=== PATIENT | female | born 1955 | race Caucasian/White ===

== ENCOUNTER 2020-04-08 07:13 | Inpatient (IN) ==
--- NOTE | 2020-03-21 16:17 | PAT Medication Instructions ---
Medication Instructions Date of Service March 21, 2020 Home Medications alendronate 70 mg PO WK amlodipine 5 mg PO QAM atorvastatin 10 mg PO QPM biotin 5,000 mcg PO DAILY cholecalciferol (vitamin D3) [Vitamin D3] 125 mcg PO QAM cyclobenzaprine 5 mg PO UD PRN hydrocodone-acetaminophen 1 tab PO UD PRN polyethylene glycol 3350 [Miralax] 17 g PO UD PRN turmeric 1,000 mg PO DAILY Continue as directed alendronate 70 mg PO WK STOP taking 2 weeks before surgery (or as soon as possible if surgery is within 2 weeks) turmeric 1,000 mg PO DAILY DO NOT take the morning of surgery biotin 5,000 mcg PO DAILY cholecalciferol (vitamin D3) [Vitamin D3] 125 mcg PO QAM cyclobenzaprine 5 mg PO UD PRN polyethylene glycol 3350 [Miralax] 17 g PO UD PRN Take morning of surgery With a small sip of water, OTHERWISE NOTHING TO EAT OR DRINK AFTER MIDNIGHT: amlodipine 5 mg PO QAM hydrocodone-acetaminophen 1 tab PO UD PRN (okay to take up to 4 hours prior to surgery if needed) Take evening before surgery atorvastatin 10 mg PO QPM cyclobenzaprine 5 mg PO UD PRN (if needed) hydrocodone-acetaminophen 1 tab PO UD PRN (if needed) polyethylene glycol 3350 [Miralax] 17 g PO UD PRN (if needed) Other Notes If you have any questions please call us at [phone] or [phone] or [phone] or [phone]
--- NOTE | 2020-03-25 10:38 | Anesthesiology Consultation ---
Date of Service March 25, 2020 Assessment & Plan (1) Encounter for pre-operative examination: Per PAT assessment on 03/25: Travel screen negative. No known COVID-19 positive contacts. No current COVID-19 related symptoms. Patient scheduled for preop protocol COVID-19 testing scheduled 04/04 ([facility]). Awaiting results. Chart Review Chart Review: Acceptable Risk for Surgery (pending preop COVID testing) and Patient seen in Pre Admission Testing Teaching & Discussion Pre-Anesthesia Teaching/Discussion Notes: Instructed NPO after midnight before surgery,except medications with 15 cc of water. Medication instructions provided according to the PAT guidelines. History Surgery Operation Date: 04/08/20 09:05 Proposed Procedures p L5-S1 Decompression Fusion, L3-L5 Hardware Removal, Spinal Cord Monitoring - Carlin Dumont DO Height/Weight Height: 5 ft 2 in Weight: 59.6 kg Allergies Allergy/AdvReac Type Severity Reaction Status Date / Time No Known Allergies Allergy Unverified 03/20/20 11:34 Medications Home Medications Medication Instructions Recorded Confirmed Last Taken alendronate 70 mg PO WK 03/20/20 03/20/20 Unknown amlodipine 5 mg PO QAM 03/20/20 03/20/20 Unknown atorvastatin 10 mg PO QPM 03/20/20 03/20/20 Unknown biotin 5,000 mcg PO DAILY 03/20/20 03/20/20 Unknown cholecalciferol (vitamin D3) 125 mcg PO QAM 03/20/20 03/20/20 Unknown [Vitamin D3] cyclobenzaprine 5 mg PO UD PRN 03/20/20 03/20/20 Unknown hydrocodone-acetaminophen 1 tab PO UD PRN 03/20/20 03/20/20 Unknown polyethylene glycol 3350 [Miralax] 17 g PO UD PRN 03/20/20 03/20/20 Unknown turmeric 1,000 mg PO DAILY 03/20/20 03/20/20 Unknown Past Medical History Medical History High blood pressure High cholesterol Spinal stenosis Exercise / Class Metabolic Activity II 4-5 Yardwork/Stairs/Walk up hill (no chest pain/no sob with one flight of stairs) Past Family History Family History Brother Family history of reaction to anesthesia Family history of diabetes mellitus Brother Family history of diabetes mellitus Past Surgical History Surgical History History of carpal tunnel surgery LEFT History of colonoscopy History of hysterectomy History of lumbar spinal fusion History of shoulder surgery RIGHT Past Anesthesia History No Family Hx of Anesthesia Complications (except brother- violent with anesthesia emergence) and Other (*hx of post-op hypotension with back surgery in the past, no issues with other surgeries/anesthesia*) History of PONV No Hx of PONV and No Hx of Motion Sickness Social History Smoking Status: Current every day smoker tobacco type: cigarettes Smoking cigarettes per day: 1PPD; tobacco use x 40 years Do You Dip or Chew Tobacco: No Hx Alcohol Use: No Hx Substance Use: No Review of Systems Patient denies chest pain, shortness of breath, dyspnea on exertion, fever, chills, cough, wheezing, palpitations. Physical Exam Vital Signs VITALS BP 132/83 P 68 TEMP 98.0 SP02 99%RA RESP 18 PHYSICAL Full neck and c-spine range of motion. Full TMJ range of motion. TMD 3 finger breaths Mallampati Score 2 Dentition: missing side/molars Lungs: clear throughout to auscultation Cardiac: regular rate and rhythm, no murmurs noted Spine: normal Carotid arteries: negative bruit Extremities: no edema Testing Laboratory Results 03/25/20 11:05 03/25/20 11:05 PT 10.0 Seconds (9.0-12.0) 03/25/20 11:05 INR 0.9 (0.9-1.1) 03/25/20 11:05 APTT 25.0 Seconds (21.0-31.0) 03/25/20 11:05 Urine Color Yellow 03/25/20 11:05 Urine Appearance Clear (Clear) 03/25/20 11:05 Urine pH 7.5 (4.5-7.5) 03/25/20 11:05 Ur Specific [place] 1.015 (1.000-1.030) 03/25/20 11:05 Urine Protein Negative (Negative) 03/25/20 11:05 Urine Glucose (UA) Negative (Negative) 03/25/20 11:05 Urine Ketones Negative (Negative) 03/25/20 11:05 Urine Nitrite Negative (Negative) 03/25/20 11:05 Ur Leukocyte Esterase Negative (Negative) 03/25/20 11:05 Blood Type A Positive 03/25/20 11:05 Antibody Screen NEGATIVE 03/25/20 11:05 Electrocardiogram Date: 03/25/20 NSR at 63bpm. Rightward axis. UDAY. Chest X-Ray Date: 03/25/20 Findings: + NAD
--- NOTE | 2020-03-25 11:35 | XRay Report ---
XR chest Pre-admission PA/Lat CLINICAL HISTORY: Preoperative chest COMPARISON STUDY: 01/16/2014 FINDINGS: The cardiac and mediastinal contours are normal. There is no evidence of focal pulmonary co nsolidation. There is no evidence of failure. No pleural effusions are visualized.[ IMPRESSION: No active disease in the chest. ACT 112: Negative or not required by law. Electronically signed by: Castillo Olivarez M.D. 03/25/2020 11:34 AM
[2020-03-25 12:11] LABS: Appearance Urine Clear (Clear); Basophils # (auto) 0.04 K/uL (0-0.2); Basophils % (auto) 0.6 %; Bilirubin Urine Negative (Negative); Blood Urine Negative (Negative); Color Urine Yellow; Eosinophils # (auto) 0.05 K/uL (0-0.5); Eosinophils % (auto) 0.7 %; Glucose Urine UA Negative (Negative); Hematocrit (blood only) 47.4 % (37-47); Hemoglobin 16.1 g/dL (12.0-16.0); Immature Granulocytes # (auto) 0.01 K/uL (0.00-0.02); Immature Granulocytes % (auto) 0.1 %; Ketones Urine Negative (Negative); Leukocyte Esterase Urine Negative (Negative); Lymphocytes % (auto) 32.2 %; Mean Corpuscular Hemoglobin 32.5 pg (25-34); Mean Corpuscular Volume 95.6 fL (80-100); Mean Platelet Volume 9.5 fL (7.4-10.4); Monocytes # (auto) 0.59 K/uL (0.11-0.59); Monocytes % (auto) 8.6 %; Neutrophils # (auto) 3.94 K/uL (1.4-6.5); Neutrophils % (auto) 57.8 %; Nitrite Urine Negative (Negative); Platelet Count 279 K/uL (130-400); Protein Urine Negative (Negative); RDW Coefficient of Variation 13.6 % (11.5-14.5); RDW Standard Deviation 47.6 fL (36.4-46.3); Red Blood Count 4.96 M/uL (4.2-5.4); Specific Gravity Urine 1.015 (1.000-1.030); Urobilinogen Urine Negative (Negative); White Blood Count 6.83 K/uL (4.8-10.8); pH Urine 7.5 (4.5-7.5)
[2020-03-25 12:17] LABS: BUN Creatinine Ratio 17.7 (10-20); Calcium 9.8 mg/dl (8.5-10.1); Creatinine Clr Calc Pharmacy 46.1 ml/min; Est GFR (African American) 72.3; Est GFR (Non-African American) 62.4; Potassium 4.5 mmol/L (3.5-5.1)
[2020-03-25 12:33] LABS: INR 0.9 (0.9-1.1); Partial Thromboplastin Ratio 0.9
--- NOTE | 2020-03-25 14:26 | Electrocardiogram Report ---
Test Reason : Blood Pressure : / mmHG Vent. Rate : 063 BPM Atrial Rate : 063 BPM P-R Int : 162 ms QRS Dur : 096 ms QT Int : 406 ms P-R-T Axes : 077 102 060 degrees QTc Int : 415 ms Normal sinus rhythm Rightward axis Right atrial enlargement Abnormal ECG Confirmed by Arnold Clifford ([id number]) on 03/25/2020 2:25:59 PM Referred By: Carlin Dumont Confirmed By:Keshawn Clifford
[~2020-04-08 07:13] MED LIST: ACETAMINOPHEN 500 MG TAB PO SCH; CEFAZOLIN 1000MG 1,000 MG/7.5 ML SYR IV SCH; CeleBREX 200 MG CAP PO SCH; GABAPENTIN 300 MG CAP PO SCH; LR 15ML/HR IV SCH
[2020-04-08] MEDS ORDERED: ROCURONIUM BROMIDE 10 MG/ML 5 ML VIAL IV ONE (08:22)
[2020-04-08] MEDS ORDERED: DEXAMETHASONE SOD INJ 4 MG/ML VIAL ONE (08:22)
[2020-04-08] MEDS ORDERED: LIDOCAINE HCL 2% 2 ML VIAL/AMP(20MG/ML) INFIL ONE (08:22)
[2020-04-08] MEDS ORDERED: ONDANSETRON INJ 2 MG/ML 2 ML VIAL ONE (08:22)
[2020-04-08] MEDS ORDERED: PROPOFOL IV EMULSION 10 MG/ML 20 ML VIAL IV ONE (08:22)
[2020-04-08] MEDS ORDERED: NEOSTIGMINE METHYLSULFATE 1 MG/ML 10ML VIAL ONE (08:22)
[2020-04-08] MEDS ORDERED: GLYCOPYRROLATE 0.2 MG/ML VIAL ONE (08:22)
[2020-04-08] MEDS ORDERED: MIDAZOLAM HCL 1 MG/ML 2ML VIAL ONE (08:23)
[2020-04-08] MEDS ORDERED: fentaNYL citrate 100 MCG/2 ML VIAL ONE ×2 (08:23→10:08)
--- NOTE | 2020-04-08 09:03 | History & Physical Bridge Note ---
Date of Service April 08, 2020 History & Physical Bridge Note I have examined the patient, reviewed the History & Physical and in the interval since the performance of the History & Physical I have noted the following changes of clinical significance: no changes noted
--- NOTE | 2020-04-08 09:04 | History & Physical Report ---
Date of Service April 08, 2020 Assessment & Plan (1) Neurogenic claudication due to lumbar spinal stenosis: L5-S1 decompression fusion, L3-L5 hardware removal Present on Admission?: Yes History of Present Illness Chief Complaint: Back and leg pain Primary Care Provider: Zhou Juárez This is a 65-year-old female known to me the presents with chronic persistent back and leg pain. Declining since course of nonoperative care is here for surgical invention. Allergies Allergy/AdvReac Type Severity Reaction Status Date / Time No Known Allergies Allergy Unverified 04/08/20 08:03 Home Medications Home Medications Medication Instructions Recorded Confirmed Type alendronate 70 mg PO WK 03/20/20 04/08/20 History amlodipine 5 mg PO QAM 03/20/20 04/08/20 History atorvastatin 10 mg PO QPM 03/20/20 04/08/20 History biotin 5,000 mcg PO DAILY 03/20/20 04/08/20 History cholecalciferol (vitamin D3) 125 mcg PO QAM 03/20/20 04/08/20 History [Vitamin D3] cyclobenzaprine 5 mg PO UD PRN 03/20/20 04/08/20 History hydrocodone-acetaminophen 1 tab PO UD PRN 03/20/20 04/08/20 History polyethylene glycol 3350 [Miralax] 17 g PO UD PRN 03/20/20 04/08/20 History turmeric 1,000 mg PO DAILY 03/20/20 03/20/20 History Past Med/Surg History Medical History High blood pressure High cholesterol Spinal stenosis Surgical History History of carpal tunnel surgery LEFT History of colonoscopy History of hysterectomy History of lumbar spinal fusion History of shoulder surgery RIGHT Family History Brother Family history of reaction to anesthesia Family history of diabetes mellitus Brother Family history of diabetes mellitus Social History Smoking Status: Current every day smoker Cigarettes Per Day: 1PPD; tobacco use x 40 years; Do You Dip or Chew Tobacco: No; Hx Alcohol Use: No Hx Substance Use: No Preferred Language: Luxembourgish Communication Ability: Effective Miner Assistant Required: No Beliefs That Will Affect Care: None Current Living Situation: Spouse Other Information That Helps Us Care for You: No Feels Safe at Home: Yes Physical Exam Physical Exam: Patient is alert and oriented neurologically intact Heart regular rhythm Lungs clear to auscultation Results & Data Vital Signs (Past 12 Hours) Vital Signs Temp Pulse Resp BP Pulse Ox 04/08/20 08:13 36.8 C 69 18 172/86 H 99
[2020-04-08] MEDS ORDERED: PHENYLEPHRINE 100MCG/ML 5ML SYR ONE (10:09)
[2020-04-08] MEDS ORDERED: ePHEDrine sulfate 50 MG/ML AMP IV PRN (10:18)
[2020-04-08] MEDS ORDERED: ONDANSETRON INJ 2 MG/ML 2 ML VIAL IV PRN ×2 (10:18→14:12)
[2020-04-08] MEDS ORDERED: PROMETHAZINE HCL 12.5 MG in SODIUM CHLORIDE 0.9% 50 ML IV PRN ×2 (10:18→14:12)
[2020-04-08] MEDS ORDERED: ATROPINE SULFATE 0.1 MG/ML 10ML SYR IV PRN (10:18)
[2020-04-08] MEDS ORDERED: METOCLOPRAMIDE HCL INJ 5 MG/ML 2 ML VIAL IV PRN ×2 (10:18→14:12)
[2020-04-08] MEDS ORDERED: ePHEDrine sulfate 50 MG/ML SYR ONE (10:21)
[2020-04-08] MEDS ORDERED: BACITRACIN INJ 50,000 UNIT VIAL IR ONE (10:38)
[2020-04-08] MEDS ORDERED: BUPIVACAINE/EPINEPHRINE 0.25% 1:200,000 30 ML VIAL INFIL ONE (10:39)
[2020-04-08] MEDS ORDERED: FLOSEAL HEMOSTATIC MATRIX 10ML TOP ONE (10:39)
--- NOTE | 2020-04-08 11:59 | Fluoroscopy Report ---
FL lumbar spine 2-3V CLINICAL HISTORY: L3-5 REMOVE HARDWARE/L5-S1 DECOMPRESSION/FUSION/INTERBODY COMPARISON STUDY: 01/25/2014 FLUOROSCOPY TIME: 1 minute 12 seconds NUMBER OF FLUOROSCOPIC IMAGES: 2 FINDINGS: Prior hardware removal. Posterior laminectomy and fusion at L5-S1. Disc spaces are present at L4-L5 and L5-S1. IMPRESSION: Postoperative changes consistent with hardware revision/removal and L5-S1 laminectomy and fusion. ACT 112: Negative or not required by law. The above report was generated using voice recognition software. It may contain grammatical, syntax or spelling errors. Electronically signed by: Geremias Martinez M.D. 04/08/2020 11:58 AM
--- NOTE | 2020-04-08 12:12 | Operative Report ---
Post Operative Report Pre & Post Diagnosis Operation Date: 04/08/20 09:00 Pre-Op Diagnosis: Lumbar Spinal Stenosis without Neurogenic Claudication Post-Op Diagnosis: Lumbar Spinal Stenosis without Neurogenic Claudication I identified the patient and participated in the time-out.: Yes Procedure Operation Date: 04/08/20 09:00 Actual Procedures #1 removal of posterior segmental instrumentation L3-4 L4-5. #2 exploration of fusion L3-4 L4-5. #3 lumbar decompression with bilateral medial facetectomies and foraminotomies L5-S1. #4 posterior spinal fusion L5-S1. #5 placement posterior instrumentation L5-S1. #6 interbody fusion L5-S1. #7 placement peek cage 13 x 22 mm L5 [place] #8 placement locally harvested morselized autograft in the posterior lateral gutters. #9 placement infuse collagen sponge, master graft in the posterior lateral gutters and ostial amp and interbody space. Surgeon Carlin Dumont, Fiscal Manager None Estimated Blood Loss 200 Findings Consistent with Post-Op Diagnosis Specimens None Indications This is a 65-year-old female who presents with above-mentioned diagnosis after failing course of nonoperative care is here for the above-mentioned procedure. Description of Procedure Patient was met with identified informed consent obtained. Patient was then taken to the operative suite underwent intubation placed in a prone position the Kvng table on top of the Luciano frame. All bony prominences well-padded eyes inspected to ensure no external pressure placed upon the. This point the lumbar spine was prepped and draped in normal sterile fashion. Sharp dissection with the assistance of Bovie cautery was performed down to and exposing the instrumentation at L3-L4-L5 bilaterally as well as the lamina and transverse processes of L5 and sacral ala. Then proceeded move the hardware at L3 L4-5 bilaterally exploring the fusion mass noting it to be intact. Then performed a complete laminectomy of L5 including bilateral medial facetectomies and foraminotomies addressing severe spinal stenosis. Pedicle screws were then placed in L5 and S1 levels bilaterally with assistance of fluoroscopy and appropriate size todd placed. By way of a transforaminal approach on the right complete discectomy was performed endplates curetted to subcortical bleeding bone and a 13 x 22 mm peek cage filled with osteo-bone graft tapped in position. The rods were then locked in final position. The transverse processes of L5 and sacral ala burred to subcortical bleeding bone. Infuse collagen sponge master graft local autograft was then placed in the posterior lateral gutters. 15 round HIRAL drain inserted. The incision was then closed with 1 Vicryl the fascia 2-0 Vicryl subcutaneously and 4 Monocryl for final skin closure. Steri- Strip sterile dressings placed. Patient will continue PACU stable condition. Please note spinal cord monitoring was utilized that the procedure no changes noted. I attest to the content of the Intraoperative Record and any orders documented therein. Any exceptions are noted below.
[2020-04-08] MEDS: fentaNYL citrate 100 MCG/2 ML VIAL IV PRN ×4 (12:19→12:36)
[2020-04-08] MEDS: HYDROmorphone INJ 2 MG/ML SYR/VIAL IV PRN ×2 (12:41→13:16)
--- NOTE | 2020-04-08 13:39 | Anesthesiology Progress Note ---
Date of Service April 08, 2020 Anesthesia Post Procedure Vital Signs Vital Signs: Temp Pulse Pulse Resp BP Pulse Ox 04/08/20 13:25 36.3 C L 60 16 90/60 L 100 04/08/20 13:15 49 L 12 107/60 100 04/08/20 13:05 35.7 C L 54 L 12 105/58 L 100 04/08/20 12:55 50 L 12 95/54 L 99 04/08/20 12:45 46 L 12 108/68 97 04/08/20 12:35 51 L 13 112/71 100 04/08/20 12:25 65 19 113/94 99 04/08/20 12:16 35.7 C L 94 H 13 164/61 H 99 04/08/20 08:13 36.8 C 69 18 172/86 H 99 Pain Intensity Left Back: Pain Intensity: 7 Back: Pain Intensity: 4 Transfer of Care Handoff Completed per policy Notes Mental Status: alert / awake / arousable and participated in evaluation Patient Amnestic to Procedure: Yes Nausea / Vomiting: adequately controlled Pain: adequately controlled Airway Patency, RR, SpO2: stable & adequate BP & HR: stable & adequate Hydration State: stable & adequate Anesthetic Complications: no major complications apparent
[2020-04-08] MEDS ORDERED: LORazepam 0.5 MG/1 ML VIAL IV PRN (14:12)
[2020-04-08] MEDS ORDERED: ALUMINUM/MAGNESIUM SUSP 30 ML UDC PO PRN (14:12)
[2020-04-08] MEDS ORDERED: HYDROmorphone INJ 0.5 MG/0.5 ML SYR IV PRN (14:12)
[2020-04-08] MEDS ORDERED: DO NOT ADMINISTER PNEUMOCOCCAL VACCINE PRN (14:12)
[2020-04-08] MEDS ORDERED: ACETAMINOPHEN 500 MG TAB PO PRN (14:12)
[2020-04-08] MEDS ORDERED: HYDROmorphone INJ 1 MG/ML SYRINGE IV PRN (14:12)
[2020-04-08] MEDS ORDERED: MAGNESIUM HYDROXIDE SUSP 30 ML UDC PO PRN (14:12)
[2020-04-08] MEDS ORDERED: ONDANSETRON 4 MG OD TAB PO PRN (14:12)
[2020-04-08] MEDS ORDERED: DO NOT ADMINISTER FLU VACCINE PRN (14:12)
[2020-04-08] MEDS ORDERED: SOD PHOSPHATE/SOD BIPHOSPHATE ENEMA 132 ML BTL PR PRN (14:12)
[2020-04-08] MEDS ORDERED: NALOXONE HCL 0.4 MG/1 ML VIAL/CARP IV PRN (14:12)
[2020-04-08] MEDS ORDERED: ACETAMINOPHEN 1,000 MG/100 ML VIAL IV PRN (14:12)
[2020-04-08] MEDS ORDERED: FAMOTIDINE 20 MG TAB PO PRN (14:12)
[2020-04-08] MEDS ORDERED: LORazepam 0.5 MG TAB PO PRN (14:12)
[2020-04-08] MEDS ORDERED: bisacodyL 10 MG SUPP PR PRN (14:12)
[2020-04-08] MEDS: LACTATED RINGER'S 1,000 ML IV SCH (15:41)
[2020-04-08] MEDS: CEFAZOLIN 1000MG 1,000 MG/7.5 ML SYR IV SCH (15:41)
[2020-04-08] MEDS: KETOROLAC TROMETHAMINE 15 MG/ML VIAL IV SCH ×2 (15:42→21:04)
[2020-04-08] MEDS: ATORVASTATIN 10 MG TAB PO SCH (21:03)
[2020-04-08] MEDS: DOCUSATE SODIUM/SENNA 50/8.6MG TAB PO SCH (21:04)
[2020-04-09] MEDS: CEFAZOLIN 1000MG 1,000 MG/7.5 ML SYR IV SCH (00:16)
[2020-04-09] MEDS: LACTATED RINGER'S 1,000 ML IV SCH (00:22)
[2020-04-09] MEDS: KETOROLAC TROMETHAMINE 15 MG/ML VIAL IV SCH ×2 (01:58→08:53)
[2020-04-09] MEDS: OXYCODONE HCL IR 5 MG TAB (IMMEDIATE RELEASE) PO PRN ×4 (01:58→21:08)
[2020-04-09 06:01] LABS: Basophils # (auto) 0.01 K/uL (0-0.2); Basophils % (auto) 0.1 %; Eosinophils # (auto) 0.01 K/uL (0-0.5); Eosinophils % (auto) 0.1 %; Hematocrit (blood only) 33.4 % (37-47); Hemoglobin 11.1 g/dL (12.0-16.0); Immature Granulocytes # (auto) 0.06 K/uL (0.00-0.02); Immature Granulocytes % (auto) 0.4 %; Lymphocytes # (auto) 2.56 K/uL (1.2-3.4); Lymphocytes % (auto) 17.9 %; Mean Corpuscular Hemoglobin 32.1 pg (25-34); Mean Corpuscular Hgb Conc 33.2 g/dL (32-36); Mean Corpuscular Volume 96.5 fL (80-100); Mean Platelet Volume 8.9 fL (7.4-10.4); Monocytes % (auto) 9.8 %; Neutrophils # (auto) 10.25 K/uL (1.4-6.5); Neutrophils % (auto) 71.7 %; Platelet Count 240 K/uL (130-400); RDW Coefficient of Variation 13.8 % (11.5-14.5); RDW Standard Deviation 48.4 fL (36.4-46.3); Red Blood Count 3.46 M/uL (4.2-5.4); White Blood Count 14.29 K/uL (4.8-10.8)
[2020-04-09] MEDS: POLYETHYLENE (MIRALAX) 17 GM PACK PO SCH ×3 (06:22→16:41)
[2020-04-09 06:31] LABS: BUN Creatinine Ratio 27.3 (10-20); Creatinine Clr Calc Pharmacy 47.1 ml/min; Est GFR (African American) 74.2; Potassium 4.7 mmol/L (3.5-5.1)
[2020-04-09] MEDS: AMLODIPINE BESYLATE 5 MG TAB PO SCH (08:51)
--- NOTE | 2020-04-09 13:18 | Orthopedic Progress Note ---
Date of Service April 09, 2020 Assessment & Plan (1) Neurogenic claudication due to lumbar spinal stenosis: This time we will continue physical therapy monitor HIRAL operatively discharge home tomorrow. Present on Admission?: Yes Admission and Anticipated Discharge Date Admission Date: April 08, 2020 Subjective Back pain controlled leg pain improved Physical Exam Physical Exam: Patient is good strength testing is up and walking well. Appears comfortable. Results & Data ([facility]) Vital Signs (Past 12 Hours) Vital Signs Temp Pulse Resp BP Pulse Ox 04/09/20 11:42 70 129/73 04/09/20 11:22 36.6 C 63 16 97/56 L 99 04/09/20 08:49 67 103/68 99 04/09/20 07:35 36.6 C 59 L 14 129/78 95 04/09/20 03:09 36.3 C L 61 16 128/74 96
[2020-04-09] MEDS: DOCUSATE SODIUM/SENNA 50/8.6MG TAB PO SCH (16:42)
[2020-04-09] MEDS: ATORVASTATIN 10 MG TAB PO SCH (21:09)
[2020-04-10] MEDS: POLYETHYLENE (MIRALAX) 17 GM PACK PO SCH ×2 (00:32→05:56)
[2020-04-10] MEDS: TRAMADOL HCL 50 MG TABLET PO PRN ×2 (00:34→07:33)
[2020-04-10] MEDS: AMLODIPINE BESYLATE 5 MG TAB PO SCH (07:33)
[2020-04-10] MEDS: DEXAMETHASONE SOD PHOSPHATE 8 MG in SYRINGE 0 ML IV SCH ×2 (09:44→11:15)
--- NOTE | 2020-04-10 11:13 | Discharge Summary ---
Date of Service April 10, 2020 Admission HPI Per Admitting Provider This is a 65-year-old female known to me the presents with chronic persistent back and leg pain. Declining since course of nonoperative care is here for surgical invention. Principal Diagnosis Lumbar spinal stenosis with neurogenic claudication Discharge Data Allergies Allergy/AdvReac Type Severity Reaction Status Date / Time No Known Allergies Allergy Unverified 04/08/20 08:03 Consultations 04/08/20 14:12 Consult Case Management - Discharge Planning Routine Procedures Performed Operation Date: 04/08/20 09:00 Actual Procedures p L5-S1 Decompression Fusion, Interbody at L5-S1, Spinal Cord Monitoring, Application of Infuse BMP(Not Applicable) - Carlin Dumont DO s L3-L5 Hardware Removal(Not Applicable) - Carlin Dumont DO Ordered Studies 04/08/20 09:00 FL fluoroscopy <1hr Routine FL lumbar spine 2-3V Routine Hospital Course (1) Neurogenic claudication due to lumbar spinal stenosis: Patient went lumbar decompression fusion tolerated this well second orthopedic for possibly. Postop day 1 she was up and ambulating marked improved her leg pain progressed to postop day #2 walking well X strength testing pain well controlled HIRAL drain decreasing socially discharged home. Discharge orders instructions from the chart for further review. Total Time Total Time Spent Total Time Spent (In Minutes): 20 minutes Discharge Plan Discharge Items Patient Disposition: Home - Self-Care Reason For Visit: LUMBAR SPINAL STENOSIS WO NEUROGENIC CLAUDICATION Discharge Diagnosis: Lumbar spinal stenosis with neurogenic claudication Activity: As commented below Non-emergency contact: Primary Care Provider Call non-emergency contact if: you have any medication questions Follow-up/Referrals: Zhou Juárez [Primary Care Provider] - Diet: Regular Addtl Attending Provider Instructions: ACTIVITY RECOMMENDATIONS: SELF CARE INSTRUCTIONS AFTER THORACIC/LUMBAR FUSIONS 1. You may walk to your tolerance. It is good exercise for your legs and back. Expect some back and intermittent leg aches and pains. 2. You may perform "counter-top" level activities (make a sandwich, jhony with a project, etc.). 3. No bending or lifting of more than 10 pounds or back twisting of any nature (roll like a log when turning in bed). 4. You may ride in a car for 20-30 minutes at a time. No driving until after your first visit with your doctor. 5. Frequent changes of position and restricting sitting to 30 minutes at a time will help limit the amount of back spasms and stiffness you may experience. 6. You may discontinue the use of ambulatory aids (cane, crutches, etc.) once your strength and confidence allow. 7. You may criminal psychologist the shower and let water strike your incision when you arrive home at least once daily. Do not take a tub bath, sit in a hot tub or go into a swimming pool until after your first recheck in the office. SPECIAL CARE INSTRUCTIONS: VERY IMPORTANT TO READ AND REVIEW A. Your surgical incision has been closed with a cosmetic suture under the skin that will dissolve in about 6 weeks. In 14 days, you can use a pair of clean scissors and cut the suture that is left outside of the skin at the ends of your incision. 1. The small skin tapes can be removed 7 days after surgery if they have not fallen off by that point. 2. You may keep the wound open to air as much as possible to promote healing after post-op day number 5 unless told otherwise by your doctor. 3. If you think the wound looks like it is becoming infected (redness or worsening drainage) and/or you are experiencing fever, chill or worsening back pain and muscle spasms, contact the office so that we may evaluate you as soon as possible. B. Complications are uncommon, but please contact us if you have any signs or symptoms of: 1. wound infection (fever higher than 102.5 degrees F, redness, separation of wound, drainage, or increasing pain from the incision) 2. blood clots in legs (pain, swelling, redness and warmth in legs) 3. urinary tract infection (fever higher than 102.5 degrees F, burning upon urination or increased frequency of urination) 4. nerve problems (inability to walk on your toes or heels, numbness, loss of bowel or bladder control) 5. any other symptoms that concern you C. Please call the office at if you have any concerns or questions about your operation or recovery. D. No smoking! Smoking drastically decreases the chance of a solid fusion. E. Do not take any anti-inflammatory medications (Indocin, Advil, Motrin, Aspirin, Naprosyn, etc.) as these may inhibit the chance of a solid fusion. Tylenol is okay to take for pain. MANAGING PAIN AFTER SPINAL SURGERY 1. Narcotic medication is intended for short-term use and will be provided for surgical pain. Surgical pain usually lasts for a period of 4-6 weeks. Narcotic medication includes Percocet, Vicodin, Darvocet, Tylenol #3 or Lortab. 2. Longer-term pain is more appropriately treated with non-narcotic medication such as Tylenol ES. 3. Muscle spasm is not appropriately treated with narcotics. Muscle relaxers such as Soma, Flexeril or Skelaxin can be used along with Tylenol ES. 4. Remember that we all live with some "aches and pains". This is not unusual or uncommon after an injury or as we get older. a. Back pain is expected and may include muscle spasms for 4 to 6 weeks after surgery. The pain should gradually improve. If the pain worsens for no apparent reason, please contact the office. b. Intermittent leg pain may also be experienced and should not be concerned about unless it worsens for no apparent reason. If so, please contact the office. 5. We will provide appropriate medication within the normal guidelines of their prescribed use. We will also be very cautious and aware of potential abuse and extended duration of patients' medication needs. a. Pain medications are for your comfort and to assist with sleep and rest so that the tissue can heal. They are not provided in order to return to normal activity and should not be used through the day. To do so or worsening pain at night can result from ongoing tissue damage and development of tolerance to the prescribed medicine. 6. Please allow 2-3 days to process refills. Prescriptions will not be mailed but must be picked up at the office. FOLLOW UP VISIT: Keep your scheduled follow-up appointment. Any questions, please call the office at . Pending Studies at Discharge: No Stand-Alone Forms: My [employer], Smoking Cessation Medications and DC Order Prescriptions: New tramadol 50 mg tablet 50 mg PO Q6H PRN (Reason: pain, moderate) Qty: 20 RF: 0 oxycodone 5 mg tablet 5 mg PO Q6H PRN (Reason: pain, severe) Qty: 20 RF: 0 Continued polyethylene glycol 3350 [Miralax] 17 gram Powder In Packet 17 g PO UD PRN (Reason: Constipation) RF: 0 atorvastatin 10 mg Tablet 10 mg PO QPM RF: 0 amlodipine 5 mg Tablet 5 mg PO QAM RF: 0 cyclobenzaprine 5 mg Tablet 5 mg PO UD PRN (Reason: MUSCLE SPASMS) RF: 0 cholecalciferol (vitamin D3) [Vitamin D3] 125 mcg (5,000 unit) Tablet 125 mcg PO QAM RF: 0 alendronate 70 mg Tablet, Effervescent 70 mg PO WK RF: 0 biotin 5,000 mcg Tablet,Disintegrating 5,000 mcg PO DAILY RF: 0 turmeric 400 mg Capsule 1,000 mg PO DAILY RF: 0 Discontinued hydrocodone-acetaminophen 5-325 mg Tablet 1 tab PO UD PRN (Reason: Pain) RF: 0 Discharge Orders: Discharge Order (Routine); Ordered 04/10/20 Ordered By: Carlin Dumont Admission Data Admit Date/Time: 04/08/20 12:39 Attending Provider: Carlin Dumont Admit Provider: Carlin Dumont Primary Care Provider: Zhou Juárez Other Interventions: Discharge Summary Assessment (RN) Last Done: 04/10/20 09:24
== END 2020-04-10 14:12 | disposition home or self-care (01) | DRG 455 ==
LOC: ASU 07:13 → 3E 12:39